=== PATIENT | female | born 1970 | race Caucasian/White ===

== ENCOUNTER → 2017-01-12 | Outpatient (CLI) | payer BC ==
--- NOTE | 2017-01-12 13:25 | KCIC ---
Chest PA and lateral Indication: Bronchitis and asthma with chest tightness. Time of exam 1:14 p.m. The heart size is normal. The lungs are clear. The pulmonary vascularity is unremarkable. No infiltrate, effusion or pneumothorax is seen. Impression: No acute cardiopulmonary process is detected. Electronically signed by: Fitz Pineda MD (Jan 12, 2017 13:24:03)
== END | disposition home or self-care (01) ==
LOC: KCIC 13:09
PROVIDERS: ATTEND Family Medicine
DX: J45.909 Unspecified asthma, uncomplicated (principal); R05 Cough; R07.89 Other chest pain
CPT/HCPCS: 71020